=== PATIENT | male | born 1995 | race Caucasian/White ===

== ENCOUNTER 2018-08-02 12:41 | Emergency (ER) | payer MEDICAID, OTHER ==
[~2018-08-02] VITALS: Ht 182.9 cm; Wt 81.8 kg
[2018-08-02] MEDS ORDERED: pseudoephedrine 30mg tablet PO ONE (15:15)
[2018-08-02 15:49] VITALS: BP 123/71
== END 2018-08-02 15:53 | disposition home or self-care (01) ==
LOC: ER 12:42
DX: H69.83 Other specified disorders of Eustachian tube, bilateral (principal); F17.200 Nicotine dependence, unspecified, uncomplicated; F12.90 Cannabis use, unspecified, uncomplicated; Z88.8 Allergy status to other drugs, medicaments and biological substances
CPT/HCPCS: 70450; 70486; 99284